=== PATIENT | male | born 1955 | race Caucasian/White ===

== ENCOUNTER 2019-08-17 12:11 | Emergency (ER) | payer MEDICAID ==
[2019-08-17 13:24] VITALS: BP 138/82
== END 2019-08-17 13:24 | disposition home or self-care (01) ==
LOC: ED 12:11
DX: J01.90 Acute sinusitis, unspecified (principal); H66.92 Otitis media, unspecified, left ear; G89.29 Other chronic pain; M54.9 Dorsalgia, unspecified